=== PATIENT | female | born 1980 | race Caucasian/White ===

== ENCOUNTER 2016-04-09 08:42 | Outpatient (CLI) | END 2016-04-09 08:43 | disposition home or self-care (01) ==

== ENCOUNTER 2016-04-28 08:51 | Outpatient (CLI) | payer MEDICAID | END 2016-04-28 08:52 | disposition home or self-care (01) | DX: O24.313 Unspecified pre-existing diabetes mellitus in pregnancy, third trimester (principal); E11.9 Type 2 diabetes mellitus without complications; Z3A.00 Weeks of gestation of pregnancy not specified ==

== ENCOUNTER 2016-05-15 09:05 | Outpatient (CLI) | payer MEDICAID | END 2016-05-15 09:06 | disposition home or self-care (01) | DX: Z71.3 Dietary counseling and surveillance (principal); O24.113 Pre-existing type 2 diabetes mellitus, in pregnancy, third trimester; Z68.39 Body mass index [BMI] 39.0-39.9, adult ==

== ENCOUNTER 2016-06-04 08:00 | Outpatient (CLI) | payer MEDICAID | END 2016-06-04 23:59 | disposition home or self-care (01) | DX: Z34.83 Encounter for supervision of other normal pregnancy, third trimester (principal) ==

== ENCOUNTER 2016-08-08 12:59 | Outpatient (CLI) | payer MEDICAID | END 2016-08-08 13:00 | disposition home or self-care (01) | DX: K76.0 Fatty (change of) liver, not elsewhere classified (principal); K80.80 Other cholelithiasis without obstruction ==

== ENCOUNTER 2016-08-19 12:45 | Outpatient (CLI) | payer MEDICAID | END 2016-08-19 12:46 | disposition home or self-care (01) | DX: K80.50 Calculus of bile duct without cholangitis or cholecystitis without obstruction (principal) ==

== ENCOUNTER 2016-08-25 06:07 | Day surgery (SDC) | payer MEDICAID ==
[2016-08-25] MEDS ORDERED: ceFAZolin 2 GM/50 ML 50 ML IV ONE (06:29)
[2016-08-25] MEDS ORDERED: LACTATED RINGERS 1,000 ML IV ONE ×3 (06:39→09:35)
[2016-08-25 07:22] LABS: HCG UR QUAL NEGATIVE
[2016-08-25 07:39] LABS: ALBUMIN/GLOBULIN RATIO 1.3 (1.0-2.2); BILIRUBIN,TOTAL 0.5 mg/dL (0.2-1.0); CALCIUM 8.9 mg/dL (8.5-10.3); CREATININE 0.5 mg/dL (0.4-1.0); POTASSIUM 4.5 mmol/L (3.5-5.0); TOTAL PROTEIN 7.7 g/dL (6.7-8.2)
[2016-08-25] MEDS ORDERED: BUPIVACAINE 0.5% PF 30 ML VIAL INFIL ONE (08:12)
[2016-08-25] MEDS ORDERED: PROPOFOL 200 MG/20 ML VIAL IVP ONE (08:30)
[2016-08-25] MEDS ORDERED: fentaNYL 100 MCG/2 ML VIAL IVP ONE (08:30)
[2016-08-25] MEDS ORDERED: ACETAMINOPHEN 1,000 MG/100 ML VIAL IV ONE (08:30)
[2016-08-25] MEDS ORDERED: KETOROLAC 30 MG/ML VIAL IVP ONE (08:30)
[2016-08-25] MEDS ORDERED: LIDOCAINE-MPF 2% 5 ML VIAL IM ONE (08:30)
[2016-08-25] MEDS ORDERED: DEXAMETHASONE 4 MG/ML VIAL IVP ONE (08:30)
[2016-08-25] MEDS ORDERED: SUCCINYLCHOLINE 200 MG/10 ML VIAL IVP ONE (08:30)
[2016-08-25] MEDS ORDERED: ONDANSETRON 4 MG/2 ML VIAL IVP ONE (08:30)
[2016-08-25] MEDS ORDERED: MIDAZOLAM 2 MG/2 ML VIAL IVP ONE (08:30)
[2016-08-25] MEDS ORDERED: ROCURONIUM 50 MG/5 ML VIAL IVP ONE (08:30)
[2016-08-25] MEDS: RACEPINEPHRINE 2.25% NEB INH ONE ×2 (09:45→09:50)
--- NOTE | 2016-08-25 09:59 | OPERATIVE REPORT ---
Operative Report - General Procedure Date: 08/25/16 Planned Procedure: Laparoscopic cholecystectomy, possible open cholecystectomy, possible intra Pre-Op Diagnosis: Biliary colic Post Op Diagnosis: Biliary colic - Procedure Note Primary Surgeon: Nuzhat Secondary Surgeon: Operation performed:Laparoscopic cholecystectomy, Fluids= 2100 mL Anesthesia Provider: Abundio Huffman Anesthesia Technique: General ET tube ( and 30 mL 1/2% Marcaine locally) Pathology: Gallbladder and contents sent Estimated Blood Loss (in cc): 10 Complications: None. - Other Other Information/Narrative: After verbal and written informed consent was obtained detailing the risks of infection, bleeding with all of its risks including transfusion, common bile duct injury, and the patient was brought to the operative suite and placed in the supine position on the operating room table. Monitoring devices were applied along with TEDs and pneumatic compressive stockings. Care was taken to avoid pressure points. Prophylactic antibiotics were given. An adequate level of general endotracheal anesthesia was established by Pierre Huffman. The patient's airway was difficult to intubate and Andrew Chaney came into assist. The abdomen was then prepped with ChloraPrep and draped in a sterile fashion. A "time in" then confirmed that the paitient was identified with 3 identifiers (name, birthdate and medical record number), the history and physical was in the chart, the signed consent confirming the procedure was in the chart, the patient was in the correct position, the aforementioned prophylactic measures were in place or given, we had the correct personel and equipment to complete the procedure and that anesthesia, surgery and nursing were given an opportunuty to express any concerns. The initial incision was at the umbilicus and dissection to the linea alba was completed using blunt dissection. The linea alba was grasped with a Jorge and incised. In a similar manner the peritoneum was grasped and incised using Metzenbaum scissors. In this location, a 12 mm blunt tipped, balloon tipped port was placed and the balloon was inflated to keep the port in position. The abdominal cavity was insufflated with carbon dioxide to steady-state pressure of 15 mmHg. Three additional 5 mm ports were placed in standard location for laparoscopic cholecystectomy (subxiphoid and 2 right subcostal). The gallbladder fundus was grasped with an atraumatic grasper. The gallbladder was large and edematous. Multiple adhesions had to be taken down by blunt and sharp dissection along with electrocautery. Eventually, we identified the infundibulum, and this was then grasped and retracted inferior and laterally. Dissection was then begun in the angle of Calot. The cystic duct and (slightly medially and posteriorly) cystic artery were clearly identified. The critical view was obtained. Two clips proximally and one clip distally were used to control both the cystic duct and cystic artery. Both were then transected with laparoscopic dorian. The gallbladder was then removed from its fossa in a retrograde fashion using electrocautery. It was placed in an EndoCatch bag to be extracted through the 12 mm port site. I irrigated the right upper quadrant with a liter of warm sterile saline, and the area was aspirated dry. I inspected the gallbladder fossa and there was no bleeding or bile leak. Clips on the cystic duct and cystic artery appeared to be secure. I briefly visually explored the abdomen. There was no other evidence of overt pathology, although there is no question regarding a fatty liver. The patient definitely has a fatty liver. I injected the port sites at the peritoneal, fascial, and skin levels under direct vision with 0.5% Marcaine. All ports and the EndoCatch containing the gallbladder were removed. The fascia at the umbilicus was reapproximated using 2 [id number] 0 Vicryl sutures. The skin at each port site was approximated using a subcuticular 4-0 Monocryl. The surgical count of instruments, needles and sponges was reported as correct twice. Mastisol, Steri-Strips and sterile surgical dressings were applied. The patient was then awakened from anesthesia, extubated, and having tolerated the procedure well, was transported to the recovery room. No complications were encountered. A "time out" confirmed the operation performed, the fluids given, the estimated blood loss and anesthesia, surgery and nursing were given an opportunuty to express any concerns.
[2016-08-25] MEDS ORDERED: fentaNYL 100 MCG/2 ML VIAL ONE (10:06)
[2016-08-25] MEDS ORDERED: oxyCOD/ACETAMIN 5 MG/325 MG TABLET PO ONE (10:38)
[2016-08-25 11:29] VITALS: BP 123/74
== END 2016-08-25 06:08 | disposition home or self-care (01) ==
LOC: SDS 06:07
PROVIDERS: ATTEND Surgery
PROC: 0FT44ZZ Resection of Gallbladder, Percutaneous Endoscopic Approach (ICD-10-PCS; principal; 2016-08-25 07:30)
DX: K80.50 Calculus of bile duct without cholangitis or cholecystitis without obstruction (principal); K80.20 Calculus of gallbladder without cholecystitis without obstruction; K76.0 Fatty (change of) liver, not elsewhere classified
CPT/HCPCS: 47562; 80053; 81025; 94640; A9270; J0131; J0690; J7120; 88304

== ENCOUNTER 2022-09-18 07:00 | Outpatient (CLI) | payer SELFPAY ==
--- NOTE | 2022-09-18 20:34 | XRAY Report ---
PROCEDURE: Cervical Spine 2 View INDICATIONS: LEFT CERVICAL RADICULOPATHY TECHNIQUE: 3 view(s) of the cervical spine were acquired. COMPARISON: None. FINDINGS: Bones: No fractures or dislocations to the C7-T1 level. The lateral masses of C1 appear intact on t he odontoid view. No suspicious bony lesions. Scattered mild uncovertebral arthropathy. Soft tissues: No prevertebral soft tissue swelling. IMPRESSION: No acute osseous abnormality. Scattered uncovertebral arthropathy. If concern persists, MRI is recommended. Reviewed by: Brittany Crowe MD on 09/18/2022 8:32 PM PDT Approved by: Brittany Crowe MD on 09/18/2022 8:32 PM PDT Station ID: [id number]
--- NOTE | 2022-09-18 20:35 | XRAY Report ---
PROCEDURE: Hand 3 View LT INDICATIONS: LEFT HAND PAIN TECHNIQUE: 3 views of the hand(s) acquired. COMPARISON: None. FINDINGS: Bones: No fractures or dislocations. No suspicious bony lesions. Soft tissues: No suspicious soft tissue calcifications or masses. IMPRESSION: No visualized acute fracture or dislocation. However, occult injury cannot be excluded. Recommend filipe rt interval imaging follow-up in 7-10 days as clinically indicated for additional evaluation. Reviewed by: Brittany Crowe MD on 09/18/2022 8:33 PM PDT Approved by: Brittany Crowe MD on 09/18/2022 8:33 PM PDT Station ID: [id number]
== END 2022-09-18 23:59 | disposition home or self-care (01) ==
LOC: DI.S 07:00
PROVIDERS: ATTEND Emergency Medicine
DX: M54.12 Radiculopathy, cervical region (principal); M79.642 Pain in left hand

== ENCOUNTER 2023-08-02 11:38 | Outpatient (CLI) | payer SELFPAY ==
[2023-08-02 15:26] LABS: BASOPHILS % (AUTO) 0.5 %; EOSINOPHILS # (AUTO) 0.3 10^3/uL (0.0-0.7); EOSINOPHILS % (AUTO) 3.6 %; HCT - HEMATOCRIT 42.1 % (37.0-47.0); HGB - HEMOGLOBIN 13.6 g/dL (12.0-16.0); LYMPHOCYTES # (AUTO) 3.1 10^3/uL (1.5-3.5); LYMPHOCYTES % (AUTO) 35.1 %; MEAN CORPUSCULAR HGB CONC 32.3 g/dL (32.0-36.0); MEAN CORPUSCULAR VOLUME 86.6 fL (81.0-99.0); MEAN PLATELET VOLUME 11.1 fL (7.9-10.8); MONOCYTES # (AUTO) 0.4 10^3/uL (0.0-1.0); MONOCYTES % (AUTO) 4.9 %; NEUTROPHILS # (AUTO) 4.9 10^3/uL (1.5-6.6); NEUTROPHILS % (AUTO) 55.3 %; PLT - PLATELET COUNT 279 10^3/uL (130-450); RED BLOOD COUNT 4.86 10^6/uL (4.20-5.40); WHITE BLOOD COUNT 8.8 x10^3/uL (4.8-10.8)
[2023-08-02 15:33] LABS: ALBUMIN 4.3 g/dL (3.2-5.5); ALBUMIN/GLOBULIN RATIO 1.6 (1.0-2.2); BILIRUBIN,TOTAL 0.4 mg/dL (0.2-1.0); CALCIUM 9.7 mg/dL (8.5-10.3); CREATININE 0.4 mg/dL (0.6-1.3); POTASSIUM 3.8 mmol/L (3.5-4.5)
[2023-08-02 15:55] LABS: ESTIMATED AVERAGE GLUCOSE 329 mg/dL (70-100); HEMOGLOBIN A1c% 13.1 % (4.27-6.07)
== END 2023-08-02 11:39 | disposition home or self-care (01) ==
LOC: LAB.S 11:38
PROVIDERS: ATTEND Nurse Practitioner
DX: R10.9 Unspecified abdominal pain (principal); R73.9 Hyperglycemia, unspecified
CPT/HCPCS: 36415; 80053; 81001; 82150; 83036; 83690; 85025; 87086